=== PATIENT | male | born 1965 | race Two or more races ===

== ENCOUNTER → 2024-11-27 | Outpatient (CLI) | payer MEDICAID, SELFPAY ==
--- NOTE | 2024-11-27 13:00 | XR_ITS ---
Examination: Arterial duplex lower extremity study. Date and time of exam: November 27, 2024, 1301 hours INDICATIONS: Bilateral leg pain 1 month foot pain 2 months Findings: Duplex sonographic imaging of the lower extremity arteries using B-mode/Asencio scale imaging and Doppler spectral analysis and color flow. Ankle brachial indices have been recorded. Right common femoral artery demonstrates triphasic flow. Right superficial femoral artery demonstrates triphasic flow. Right popliteal artery demonstrates triphasic flow. Right posterior tibial artery demonstrated triphasic flow. Right ankle/brachial index is 1.3. Left common femoral artery demonstrates triphasic flow. Left superficial femoral artery demonstrates triphasic flow. Left popliteal artery demonstrates triphasic flow. Left posterior tibial artery demonstrated triphasic flow. Left ankle/brachial index is 1.3. Impression: Impression: Negative for peripheral obstructive arterial disease
== END | disposition home or self-care (01) ==
LOC: CDIM 12:21
PROVIDERS: PCP Family Medicine; Referring Provider Internal Medicine; Visit Provider Family Medicine
DX: M79.605 Pain in left leg (principal); M79.604 Pain in right leg
CPT/HCPCS: 93925

== ENCOUNTER → 2025-01-21 | Outpatient (CLI) | payer MEDICAID, SELFPAY ==
--- NOTE | 2025-01-21 | XR_ITS ---
Examination: Right hip AP, lateral, AP pelvis 3 views Technique: Hip AP lateral, AP pelvis, 3 views Exam date and time: January 21, 2025, 0809 hours INDICATION: Right hip pain 1 year. 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
== END | disposition home or self-care (01) ==
LOC: SDIM 07:43
PROVIDERS: PCP Internal Medicine; Referring Provider Internal Medicine; Visit Provider Internal Medicine
DX: M25.851 Other specified joint disorders, right hip (principal)
CPT/HCPCS: 73502